=== PATIENT | male | born 1995 | race Caucasian/White ===

== ENCOUNTER 2018-04-23 22:13 | Emergency (ER) | payer BC, OTHER ==
[2018-04-23] MEDS ORDERED: cefTRIAXone 1,000 MG VIAL IM ONE (22:37)
--- NOTE | 2018-04-23 22:38 | EDM.PDOC ---
ED HPI GENERAL MEDICAL PROBLEM - General Chief Complaint: Laceration Stated Complaint: LT LEG LACERATION Time Seen by Provider: 04/23/18 22:13 Source of Information: Reports: Patient, Family History Limitations: Reports: No Limitations - History of Present Illness INITIAL COMMENTS - FREE TEXT/NARRATIVE: 22 y.o.w.m came to the ed with his family after a golf cart fell on his left ankle. Pt came to the ed with a Laceration and minor bleed from the wound. His last TD was given at age 14. Pt noticed severe swelling at his left ankle, lat aspect. No other acute medical issues. BP 139/95 pulse 78 RR 18 Temp 36.8. O2 sat 99% on RA Onset Date: 04/23/18 Onset Time: 20:00 Duration: Hour(s):, Getting Worse Location: Reports: Lower Extremity, Left (above left ankle, lat aspect) Quality: Reports: Ache, Burning, Dull Severity: Mild Improves with: Reports: Rest Worsens with: Reports: Movement Context: Reports: Trauma (golf cart fell onto his left loaer leg.) Associated Symptoms: Reports: No Other Symptoms left ankle and leg Pain Score (Numeric/FACES): 4 - Related Data Allergies Allergy/AdvReac Type Severity Reaction Status Date / Time No Known Allergies Allergy Verified 04/23/18 22:36 Home Meds: Home Meds Cephalexin [Keflex] 500 mg PO Q4H #40 cap 04/23/18 [Rx] Cephalexin [Keflex] 500 mg PO Q4H #40 cap 04/24/18 [Rx] Cephalexin [Keflex] 500 mg PO Q6H #40 cap 04/24/18 [Rx] ED ROS GENERAL - Review of Systems Review Of Systems: See Below Constitutional: Reports: No Symptoms HEENT: Reports: No Symptoms Respiratory: Reports: No Symptoms Cardiovascular: Reports: No Symptoms Endocrine: Reports: No Symptoms GI/Abdominal: Reports: No Symptoms : Reports: No Symptoms Musculoskeletal: Reports: Joint Swelling (left ankle) Skin: Reports: Rash, Wound (left lower leg, lat aspect, above left ankle.) Neurological: Reports: No Symptoms Psychiatric: Reports: No Symptoms Hematologic/Lymphatic: Reports: No Symptoms Immunologic: Reports: No Symptoms ED EXAM, SKIN/RASH Exam: See Below Exam Limited By: No Limitations General Appearance: Alert, WD/WN, Mild Distress Eye Exam: Bilateral Eye: Normal Inspection Ears: Normal External Exam, Normal Canal Nose: Normal Inspection, Normal Mucosa, No Blood Throat/Mouth: Normal Inspection, Normal Lips, Normal Teeth, Normal Gums, Normal Oropharynx, Normal Voice, No Airway Compromise Head: Atraumatic, Normocephalic Neck: Normal Inspection, Supple, Non-Tender, Full Range of Motion Respiratory/Chest: No Respiratory Distress, Lungs Clear, Normal Breath Sounds, No Accessory Muscle Use, Chest Non-Tender Cardiovascular: Normal Peripheral Pulses, Regular Rate, Rhythm, No Edema, No Gallop, No JVD, No Murmur, No Rub Peripheral Pulses: 1+: Radial (L) GI/Abdominal: Normal Bowel Sounds, Soft, Non-Tender, No Organomegaly, No Distention, No Abnormal Bruit, No Mass (Male) Exam: Deferred Rectal (Males) Exam: Deferred Back Exam: Normal Inspection, Full Range of Motion Extremities: Normal Inspection, Normal Range of Motion, Non-Tender, No Pedal Edema Neurological: Alert, Oriented, CN II-XII Intact, Normal Cognition, Abnormal Gait (due to pain left ankle, swellinhg) Psychiatric: Normal Affect, Normal Mood Skin: Warm, Dry, Normal Color, Rash, Other (laeration 1.5 inches left lower leg) Lymphatic: No Adenopathy ED SKIN PROCEDURES - Laceration/Wound Repair Left Lower Leg Lac/Wound length In cm: 1.5 (left lower lateral leg) Appearance: Subcutaneous, Mildly Contaminated Distal NVT: Neuro & Vascular Intact, No Tendon Injury Anesthetic Type: Digital Local Anesthesia - Bupivicaine (Marcaine): 0.5% Plain Local Anesthetic Volume: Other (8) Skin Prep: Providone-Iodine (Betadine) Saline Irrigation (cc's): 8 Exploration/Debridement/Repair: Wound Explored, In a Bloodless Field, Explored to Base, Moderate Debridement, No Foreign Material Found Closed with: Sutures Suture Size: 3-0 # of Sutures: 10 Suture Type: Other (ethilon) Tetanus Status Addressed: Yes (given today) Complications: No Course - Vital Signs Text/Narrative:: 22 y.o.w.m came to the ed with his family after a golf cart fell on his left ankle. Pt came to the ed with a Laceration and minor bleed from the wound. His last TD was given at age 14. Pt noticed severe swelling at his left ankle, lat aspect. No other acute medical issues. BP 139/95 pulse 78 RR 18 Temp 36.8. O2 sat 99% on RA PE: 22 y.o.w. m with a LAC left last low leg lat aspect, workman's comp Imaging: Left ankle: NAD Impression: Left lower leg lat aspect LAC. just above the left ankle, road rash left lower leg Tx: Wound repair-please see note above-Rocephin, ICE. crutches. Reexam: Improved Plan: D/C with instructions Last Recorded V/S: Last Vital Signs Temp 36.6 C 04/24/18 00:19 Pulse 80 04/24/18 00:19 Resp 16 04/24/18 00:19 BP 140/97 H 04/24/18 00:19 Pulse Ox 100 04/24/18 00:19 - Orders/Labs/Meds Orders: Active Orders 24 hr Category Date Time Status Vaccines to be Administered [RC] PER UNIT ROUTINE Care 04/23/18 23:48 Active Ankle Min 3V Lt [CR] Stat Exams 04/23/18 22:40 Taken Meds: Medications Discontinued Medications Generic Name Dose Route Start Last Admin Trade Name Freq PRN Reason Stop Dose Admin Ceftriaxone Sodium 1,000 mg 04/23/18 22:37 04/23/18 22:45 Rocephin IM 04/23/18 22:38 1,000 mg ONETIME ONE Administration Diphtheria/Tetanus/Acell Pertussis 0.5 ml 04/23/18 23:48 04/23/18 23:57 Adacel IM 04/23/18 23:49 0.5 ml .ONCE ONE Administration Departure - Departure Time of Disposition: 23:58 Disposition: Home, Self-Care 01 Condition: Good Clinical Impression: Laceration - Discharge Information Prescriptions: Cephalexin [Keflex] 500 mg PO Q4H #40 cap Cephalexin [Keflex] 500 mg PO Q4H #40 cap Cephalexin [Keflex] 500 mg PO Q6H #40 cap Instructions: Crutch Use, Adult, [id number], Laceration Care, Adult Referrals: Jeremiah Hedrick MD [Primary Care Provider] - Forms: ED Department Discharge, ED Return to Work/School Form Additional Instructions: Rest, ICE and elevation of left leg, please use crutches to avoid bending of left ankle. Please f/u with your PMD this Wednesday for wound check. Please take Keflex as recommended, start in am. Please apply neosporine to wound twice daily foir 7 days, please come back to the ED if your symptoms get worse acutely. - My Orders Last 24 Hours: My Active Orders 04/23/18 22:40 Ankle Min 3V Lt [CR] Stat 04/23/18 23:48 Vaccines to be Administered [RC] PER UNIT ROUTINE - Assessment/Plan Last 24 Hours: My Active Orders 04/23/18 22:40 Ankle Min 3V Lt [CR] Stat 04/23/18 23:48 Vaccines to be Administered [RC] PER UNIT ROUTINE
[2018-04-23] MEDS ORDERED: Diphtheria,Pertussis(Acell),Tetanus Vaccine 0.5 ML SDV IM ONE (23:48)
[2018-04-24] MEDS ORDERED: Cephalexin 500 MG Cap PO ONE (00:12)
--- NOTE | 2018-04-26 11:53 | CR ---
INDICATION: Rolled golf cart, puncture wound near lateral malleolus. LEFT ANKLE: Three views of the left ankle revealed soft tissue swelling overlying the lateral malleolus. No underlying bone or joint abnormality could be identified - no fracture or dislocation was seen. MTDD
== END 2018-04-24 00:25 | disposition home or self-care (01) ==
LOC: FB.ED 22:13
DX: S91.012A Laceration without foreign body, left ankle, initial encounter (principal); Z23 Encounter for immunization; V86.99XA Unspecified occupant of other special all-terrain or other off-road motor vehicle injured in nontraffic accident, initial encounter
CPT/HCPCS: 12002; 73610; 90471; 90715; 99283; A9270; J0696